=== PATIENT | female | born 1975 | race Caucasian/White ===

== ENCOUNTER → 2023-01-17 | Day surgery (SDC) | payer OTHER ==
[~2023-01-17] MED LIST: ACETAMINOPHEN 1000 MG/100 ML 100 ML IV ONE; ADVAIR 100-501 EACH INH; ARMOUR THYROID60 MG PO; ASHWAGANDHA300 MG PO; BUPIVACAINE 0.25% 30ML SDV ONE; BUPIVACAINE HCL 0.5% INJ 30 ML VIAL INJ ONE; CANDICIDAL CAP1 EACH PO; CEFAZOLIN SODIUM 2 GM ONE; DEXAMETHASONE SOD PHOS INJ 4 MG/ML SDV ONE; FENTANYL CITRATE/PF 100MCG/2 ML INJ IV ONE; FENTANYL CITRATE/PF 100MCG/2 ML INJ ONE; HYDROCODONE/APAP 5MG-325MG TAB ONE; KETOROLAC TROMETHAMINE 30 MG/ML VIAL ONE; LACTATED RINGER'S 1,000 ML ONE; LEXAPRO10 MG PO; LIDOCAINE 1% W/EPINEPHRINE 20 ML VIAL ONE; LIDOCAINE HCL 2% LOCAL INJ 5 ML SDV VIAL INJ ONE; MEPERIDINE HCL INJ 25 MG/ML VIAL ONE; MIDAZOLAM HCL 2 MG/2 ML VIAL ONE; OMEGA 3 1,0001 EACH PO; ONDANSETRON HCL INJ 2MG/ML 2ML 2 MG/ML VIAL ONE; POVIDONE IODINE 0.05% 0.05 % ML PO ONE; PROBIOTIC & AC1 EACH PO; PROPOFOL IV EMULSION 10 MG/ML 20 ML VIAL ONE; VITAMIN B122500 MCG IM; VITAMIN D3 COM1 EACH PO; VIVISCAL PO; WELLBUTRIN SR100 MG PO
[2023-01-17 08:56] VITALS: TEMP 98
[2023-01-17 10:15] VITALS: BP 128/76; PULSE 96; RESP 14; O2SAT 96
== END | disposition home or self-care (01) ==
LOC: OR 06:56
PROVIDERS: ATTEND Orthopaedic Surgery
DX: S83.272A Complex tear of lateral meniscus, current injury, left knee, initial encounter (principal); M22.42 Chondromalacia patellae, left knee; M67.52 Plica syndrome, left knee; M23.42 Loose body in knee, left knee; M17.12 Unilateral primary osteoarthritis, left knee; E03.9 Hypothyroidism, unspecified; J45.909 Unspecified asthma, uncomplicated; M26.609 Unspecified temporomandibular joint disorder, unspecified side; F41.9 Anxiety disorder, unspecified; X58.XXXA Exposure to other specified factors, initial encounter; Z91.040 Latex allergy status; Z91.048 Other nonmedicinal substance allergy status; Z01.810 Encounter for preprocedural cardiovascular examination; Z82.61 Family history of arthritis
CPT/HCPCS: 29879; 29882; 93005; J0131; J1100; J1885; J2001; J2175; J2250; J2405; J2704; J3010; J7121; 76000; C1713